=== PATIENT | male | born 1985 | race Caucasian/White ===

== ENCOUNTER → 2017-03-02 | Outpatient (CLI) | payer BC | LOC: MW.CHGS 10:48 | PROVIDERS: ATTEND Surgery | DX: K52.9 Noninfective gastroenteritis and colitis, unspecified (principal) | CPT/HCPCS: 83630; 87046; 87324; 87899 ==

== ENCOUNTER 2017-10-21 12:44 | Day surgery (SDC) | payer BC ==
[~2017-10-21 12:44] MED LIST: Lactated Ringers 1,000 ML IV SCH
--- NOTE | 2017-10-21 13:22 | PCM.PREANE ---
Preanesthetic Assessment - Anesthesia/Transfusion/Family Hx Anesthesia History: No Prior Anesthesia Family History of Anesthesia Reaction: No Transfusion History: No Prior Transfusion(s) - Review of Systems General: No Symptoms Pulmonary: No Symptoms Cardiovascular: No Symptoms Neurological: No Symptoms Other: Reports: None - Physical Assessment NPO Status Date: 10/20/17 O2 Sat by Pulse Oximetry: 96 Respiratory Rate: 16 Vital Signs: Last Vital Signs Temp 36.3 C 10/21/17 13:03 Pulse 81 10/21/17 13:03 Resp 16 10/21/17 13:03 BP 114/78 10/21/17 13:03 Pulse Ox 96 10/21/17 13:03 Height: 1.85 m Weight: 104.78 kg ASA Class: 1 Mental Status: Alert & Oriented x3 Airway Class: Mallampati = 1 Dentition: Reports: Normal Dentition ROM/Head Extension: Full Lungs: Clear to Auscultation, Normal Respiratory Effort Cardiovascular: Regular Rate, Regular Rhythm - Allergies Allergies/Adverse Reactions: Allergies Allergy/AdvReac Type Severity Reaction Status Date / Time No Known Allergies Allergy Verified 10/15/15 06:41 - Anesthesia Plan Pre-Op Medication Ordered: None - Acknowledgements Anesthesia Type Planned: MAC Pt an Appropriate Candidate for the Planned Anesthesia: Yes Alternatives and Risks of Anesthesia Discussed w Pt/Guardian: Yes Pt/Guardian Understands and Agrees with Anesthesia Plan: Yes PreAnesthesia Questionnaire - Past Health History Medical/Surgical History: Denies Medical/Surgical History Respiratory History: Reports: Other (See Below) Other Respiratory History: asthma in the past Gastrointestinal History: Reports: Other (See Below) Other Gastrointestinal History: hx c diff Psychiatric History: Reports: Anxiety, Depression - Past Surgical History Head Surgeries/Procedures: Reports: None - SUBSTANCE USE Smoking Status *Q: Never Smoker Days Per Week of Alcohol Use: 0 Recreational Drug Use History: No - HOME MEDS Home Medications: Home Meds PARoxetine HCl [Paroxetine HCl] 30 mg PO DAILY 10/18/17 [History] traZODone HCl [Trazodone HCl] 100 mg PO BEDTIME 10/18/17 [History] - CURRENT (IN HOUSE) MEDS Current Meds: Current Medications Lactated Ringer's (Ringers, Lactated) 1,000 mls @ 125 mls/hr IV ASDIRECTED [facility] Last Admin: 10/21/17 13:04 Dose: 125 mls/hr
[2017-10-21] MEDS ORDERED: Lidocaine 2% 5 ML SDV ONE (13:45)
[2017-10-21] MEDS ORDERED: Propofol 200 MG/20 ML SDV ONE (13:45)
[2017-10-21] MEDS ORDERED: fentaNYL 100 MCG/2 ML SDV ONE (13:45)
[2017-10-21] MEDS ORDERED: Glycopyrrolate 0.2 MG/ML SDV ONE (14:19)
--- NOTE | 2017-10-21 14:24 | PCM.OPNOTE ---
- General Post-Op/Procedure Note Date of Surgery/Procedure: 10/21/17 Operative Procedure(s): colonoscopy w random bx Findings: see [id number] Pre Op Diagnosis: BRBPR Post-Op Diagnosis: Same Anesthesia Technique: Moderate Sedation Primary Surgeon: Giovani Cassidy Pathology: random colon bx Complications: None Condition: Good
[2017-10-21 14:45] VITALS: BP 127/82
--- NOTE | 2017-10-21 15:24 | PCM.POSTAN ---
POST ANESTHESIA ASSESSMENT - MENTAL STATUS Mental Status: Alert, Oriented - RESPIRATORY Respiratory Status: Respiratory Rate WNL, Airway Patent, O2 Saturation Stable - CARDIOVASCULAR CV Status: Pulse Rate WNL, Blood Pressure Stable - GASTROINTESTINAL GI Status: No Symptoms - POST OP HYDRATION Hydration Status: Adequate & Stable
--- NOTE | 2017-10-21 15:25 | PCM48HPAN ---
Post Anesthesia Note - EVALUATION WITHIN 48HRS OF ANESTHETIC Vital Signs in Normal Range: Yes Patient Participated in Evaluation: Yes Respiratory Function Stable: Yes Airway Patent: Yes Cardiovascular Function Stable: Yes Hydration Status Stable: Yes Pain Control Satisfactory: Yes Nausea and Vomiting Control Satisfactory: Yes Mental Status Recovered: Yes
--- NOTE | 2017-10-21 16:16 | OR ---
SURGEON: Giovani Cassidy MD DATE OF PROCEDURE: 10/21/2017 PREOPERATIVE DIAGNOSIS: Bright red blood per rectum, abdominal pain. POSTOPERATIVE DIAGNOSIS: Hemorrhoids. PROCEDURES PERFORMED: Colonoscopy, random biopsy. DESCRIPTION OF PROCEDURE: The patient was taken to the endoscopy room. A time out was called, patient identified, and procedure identified. Diprivan was then administrated. Patient went from awake to sleep, hearing doctor talking or door closing is normal. Perineum inspection and digital examination were then performed. A well- lubricated colonoscope was gently inserted through the rectum, advanced past the rectosigmoid junction, the descending colon, splenic flexure, transverse colon, hepatic flexure, ascending colon, arrived to the cecum. Cecum was identified as dictated in the finding. Then the scope was carefully withdrawn while attention was paid to the mucosal surface for any abnormality. Air will be sucked out during the scope withdrawal. At the rectum, retroflexed to examine any rectal diseases, fistula or hemorrhoids. During mucosal examination, random biopsy performed for abd pain. Patient tolerated procedure well. There were no intraoperative complications, and Dr. Cassidy was present throughout the whole procedure. FINDINGS: 1. The patient is easily sedated with RELAY RECORD CLERK and Diprivan. The patient is soundly snoring. 2. The patient's bowel prep is a left to be desirable, large amount of bubbles coating the mucosa, making this as a compromised study, even with constant irrigation, and the colon was rather straight forward. Cecum indicated by ileocecal fold, one-to-one indentation, light emittance, and appendiceal orifice. Mucosa was then examined upon scope pulling out. The patient does not have diverticulosis, mass, growth, inflammation, polyp, AV malformation, blood, ulceration, and none of those. The patient has some mild internal hemorrhoid and no external hemorrhoid. The patient would benefit from repeat colonoscopy 10 years from today or if clinically indicated otherwise. JONES / LO /[id number] TOM
== END 2017-10-21 14:50 | disposition home or self-care (01) ==
LOC: MW.SDS 12:44
PROVIDERS: ATTEND Surgery
DX: K52.9 Noninfective gastroenteritis and colitis, unspecified (principal); K64.8 Other hemorrhoids; F41.9 Anxiety disorder, unspecified; Z79.899 Other long term (current) drug therapy
CPT/HCPCS: 45380; J3010; J7120; 88305; J2704